=== PATIENT | male | born 1995 | race African-American/Black ===

== ENCOUNTER 2017-08-31 18:50 | Emergency (ER) | payer OTHER ==
[2017-08-31] MEDS ORDERED: Silver Sulfadiazine 1% Cream 50 GM JAR ONE (19:05)
[2017-08-31] MEDS ORDERED: traMADol HCl 50 MG TAB ONE (19:06)
== END 2017-08-31 19:23 | disposition home or self-care (01) ==
LOC: ERS 18:50
DX: T25.211A Burn of second degree of right ankle, initial encounter (principal); T25.121A Burn of first degree of right foot, initial encounter; T31.0 Burns involving less than 10% of body surface; X11.8XXA Contact with other hot tap-water, initial encounter
CPT/HCPCS: 99283

== ENCOUNTER 2019-03-12 09:18 | Emergency (ER) | payer OTHER | END 2019-03-12 10:03 | disposition home or self-care (01) | LOC: ERS 09:18 | DX: K12.0 Recurrent oral aphthae (principal) | CPT/HCPCS: 99282 ==

== ENCOUNTER 2021-01-24 13:09 | Emergency (ER) ==
[2021-01-24] MEDS ORDERED: Ondansetron ODT 4 MG TAB ONE (13:52)
[2021-01-24 13:56] LABS: Hemoglobin 15.2 g/dL (14.0-18.0); Mean Corpuscular HGB CONC 34.5 g/dL (32.0-36.0); Mean Corpuscular Hemoglobin 29.6 pg (27.0-31.0); Mean Corpuscular Volume 85.8 fL (78.0-98.0); Mean Platelet Volume 7.9 fL (7.4-10.4); Platelet Count 250 thou/uL (130-400); RBC Distribution Width 11.5 % (11.5-14.5); Red Blood Cell (RBC) Count 5.13 mill/uL (4.70-6.10)
[2021-01-24 14:14] LABS: ALT (SGPT) 41 U/L (8-55); AST (SGOT) 23 U/L (5-34); Albumin 4.1 g/dL (3.5-5.0); Alkaline Phosphatase 63 U/L (40-110); Anion Gap 13 mmol/L (10-20); BUN (Urea Nitrogen) 7 mg/dL (8.9-20.6); Bilirubin, Total 0.6 mg/dL (0.2-1.2); Calc. Creatinine Clearance 0 mL/min (70-130); Calcium 9.2 mg/dL (7.8-10.44); Carbon Dioxide 24 mmol/L (22-29); Chloride 104 mmol/L (98-107); Globulin 3.6 g/dL (2.4-3.5); Glucose 100 mg/dL (70-105); Lipase 16 U/L (8-78); Potassium 3.6 mmol/L (3.5-5.1); Protein, Total 7.7 g/dL (6.0-8.3); Sodium 137 mmol/L (136-145)
[2021-01-24 14:18] LABS: Band 26 % (5-11); Lymphocytes 19 % (21-51); MDiff Complete? YES; Monocytes 13 % (0-10); Neutrophil 21 % (42-75); Platelet Morphology Comment Appears Adequate; RBC Morphology Normal; Reactive Lymphocytes 20 % (0-10)
== END 2021-01-24 15:28 | disposition home or self-care (01) ==
LOC: ERS 13:09
DX: R19.7 Diarrhea, unspecified (principal); Z20.828 Contact with and (suspected) exposure to other viral communicable diseases; Z87.891 Personal history of nicotine dependence
CPT/HCPCS: 36415; 80053; 83690; 85025; 99284; Q0162